=== PATIENT | female | born 1965 | race African-American/Black ===

== ENCOUNTER 2018-06-11 21:18 | Inpatient (IN) | payer OTHER ==
[~2018-06-11] VITALS: Ht 170.2 cm; Wt 73.6 kg
[~2018-06-11 21:18] MED LIST: AMIT25TA PO; AMLO10TA4 PO; AMLO5TAB4 PO; ASPI81TA59 PO; Amoxicillin/Potassium Clav PO; Bisacodyl PO; CEPH-264 PO; CITA10TA8 PO; ESTR10TA VG; GABA-586 PO; Hydrocodone/Acetaminophen PO; INSU100C4 SQ; INSU100I13 SQ; INSU100I17 SQ; INSU100V8 SQ; IRON18TA PO; LEVO25TA55 PO; LISI-130 PO; LISI2.5T PO; LISI20TA PO; METF500T PO; MIRT15TA3 PO; Nicotine TD; Polyethylene Glycol 3350 PO; Sennosides/Docusate Sodium PO; VITA150T PO; [UNRECOGNIZED DRUG - OTHER]
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
[2018-06-11] MEDS ORDERED: ASPIRIN 325 MG TABLET PO ONE (21:45)
[2018-06-11] MEDS: NITROGLYCERIN SUBLINGUAL 0.4 MG BOTTLE OF 25. SL PRN ×2 (21:57→22:34)
[2018-06-11 22:05] LABS: BASO # 0.1 x10^3/uL (0.0-0.2); BASO % 1 % (0-3); EOS # 0.2 x10^3/uL (0.0-0.7); EOS % 1 % (0-3); HEMATOCRIT 48.6 % (36.0-47.0); HEMOGLOBIN 16.7 g/dL (12.0-15.5); LYMPH # 4.7 x10^3/uL (1.0-4.8); LYMPH % 27 % (24-48); MEAN CORPUSCULAR HEMOGLOBIN 31 pg (25-35); MEAN CORPUSCULAR HGB CONC 34 g/dL (31-37); MEAN CORPUSCULAR VOLUME 90 fL (79-100); MONO # 1.1 x10^3/uL (0.0-1.1); MONO % 6 % (0-9); NEUT # 11.2 x10^3uL (1.8-7.7); NEUT % 65 % (31-73); PLATELET COUNT 256 x10^3/uL (140-400); RED BLOOD COUNT 5.42 x10^6/uL (3.50-5.40); RED CELL DISTRIBUTION WIDTH 12.6 % (11.5-14.5); WHITE BLOOD COUNT 17.3 x10^3/uL (4.0-11.0)
[2018-06-11 22:15] LABS: PROTHROMBIN TIME PATIENT 11.6 SEC (11.7-14.0)
--- NOTE | 2018-06-11 22:22 | RAD ---
CHEST PA LATERAL Clinical indications: CHEST PAIN, HX OF HYPERTENSION AND CHF COMPARISON: July 14, 2017. Findings: No acute lung infiltrate or pleural effusion or pulmonary edema or lung mass or pneumothorax is seen. The heart size, pulmonary vasculature, mediastinum and both semaj are unremarkable. The osseous structures appear intact. Impression: No acute radiographic abnormality is seen. Electronically signed by: Alfredo Zhang MD (06/11/2018 10:19 PM) [id number]
[2018-06-11 22:27] LABS: CALCIUM 9.9 mg/dL (8.5-10.1); CREATININE 0.7 mg/dL (0.6-1.0); GFR 105.5; POTASSIUM 3.9 mmol/L (3.5-5.1)
[2018-06-11 22:31] LABS: ALBUMIN 3.9 g/dL (3.4-5.0); ALBUMIN/GLOBULIN RATIO 1.1 (1.0-1.7); TOTAL BILIRUBIN 0.3 mg/dL (0.2-1.0); TOTAL PROTEIN 7.5 g/dL (6.4-8.2)
[2018-06-11] MEDS ORDERED: MORPHINE SULFATE 4 MG/ML VIAL. ONE (22:39)
[2018-06-11] MEDS ORDERED: MORPHINE SULFATE 4 MG/ML VIAL. IV ONE (22:45)
[2018-06-11 22:51] LABS: BILIRUBIN,URINE NEGATIVE (NEG); CLARITY,URINE CLEAR; COLOR,URINE YELLOW; NITRITE,URINE NEGATIVE (NEG); PROTEIN,URINE NEGATIVE (NEG-TRACE); UROBILINOGEN,URINE 0.2 mg/dL (0.2 mg/dL)
[2018-06-11 22:55] LABS: BACTERIA,URINE 0 /HPF (0-FEW); RBC,URINE OCC /HPF (0-2)
[2018-06-11 22:56] LABS: AMORPHOUS SEDIMENT,UR PRESENT /HPF; SQUAMOUS EPITHELIAL CELL,UR FEW /LPF
[2018-06-11 22:58] LABS: AMPHETAMINE/METHAMPHETAMINE NEG (NEG); BARBITURATES NEG (NEG); BENZODIAZEPINES NEG (NEG); CANNABINOIDS POS (NEG); COCAINE POS (NEG); METHADONE NEG (NEG); OPIATES NEG (NEG); PHENCYCLIDINE NEG (NEG)
[2018-06-11] MEDS ORDERED: IV NORMAL SALINE 500ML BAG 500 ML IV ONE (23:15)
--- NOTE | 2018-06-11 23:15 | EKG ---
[address] [place] [address] Test Date: 2018-06-11 Test Time: 21:27:55 Pat Name: BERTA MCGREGOR Department: Room: 538 1 Gender: F Hand Clerical Verifier: : [id number] Requested By: LUISA VILLATORO Order Number: [id number] Reading MD: Justin Kaplan MD Measurements Intervals [place] Rate: 108 P: 23 IL: 148 QRS: -24 QRSD: 80 T: 98 QT: 340 QTc: 459 Interpretive Statements SINUS TACHYCARDIA LEFT ATRIAL ABNORMALITY LEFTWARD AXIS LVH WITH REPOLARIZATION ABNORMALITY ABNORMAL ECG Electronically Signed On 06-12-2018 15:32:49 HOSPITAL NURSE LIAISON by Justin Kaplan MD
[2018-06-11] MEDS ORDERED: IV NORMAL SALINE 1000ML BAG 1,000 ML IV ONE (23:30)
[2018-06-11 23:35] VITALS: BP 112/73
[2018-06-12] MEDS ORDERED: OXYB5TAB7 PO (00:12)
[2018-06-12] MEDS ORDERED: ASPI81TA50 PO (00:12)
[2018-06-12 03:00] VITALS: BP 141/76
[2018-06-12] MEDS ORDERED: MORPHINE SULFATE 4 MG/ML VIAL. IV PRN (04:00)
[2018-06-12 07:00] VITALS: BP 107/67
[2018-06-12] MEDS ORDERED: ONDANSETRON PF 4 MG/2 ML VIAL. IV PRN (09:15)
[2018-06-12] MEDS ORDERED: ONDANSETRON ODT 4 MG TAB.RAPDIS. PO PRN (09:15)
[2018-06-12] MEDS ORDERED: DEXTROSE 50% 25 GM / 50ML DISP.SYRIN. IV PRN (09:15)
[2018-06-12] MEDS ORDERED: SENNOSIDES/DOCUSATE 8.6/50MG TABLET. PO PRN (09:45)
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
[2018-06-12] MEDS ORDERED: IV NORMAL SALINE 1000ML BAG 1,000 ML IV ONE (11:15)
--- NOTE | 2018-06-12 11:42 | PDOC2 ---
RAUL STEVEN CAREER SERVICES ASSISTANT 06/12/18 1142: CARDIAC CONSULT DATE OF CONSULT Date of Consult DATE: 06/12/18 TIME: 11:12 REASON FOR CONSULT Reason for Consult: Chest pain REFERRING PHYSICIAN Referring Physician: Chente SOURCE Source: Chart review, Patient HISTORY OF PRESENT ILLNESS HISTORY OF PRESENT ILLNESS This is a 53 yo female admitted for complains of chest pain. Her pain is reported to left lower ribcage region which is reproducible with plapation and reports at times difficult to take a deep breath but no significant SOA. Denies any nausea or vomiting. She actually had a stress test 2 weeks in and was told that it was ok. Reports no falls or any injury or MVA. She takes her meds regularly but she does not want to quit cocaine and marijuana which she said she likes and continues to smoke tobacco. She said that she sees a metal hanging helper in . Denies any dizziness or passing out. PAST MEDICAL HISTORY Past Medical History Cardiovascular: HTN, possible HOCM Pulmonary: COPD GI: Constipation, gastroparesis Psych: Anxiety, Bipolar, Depression Musculoskeletal: low back pain Endocrine: Diabetes, Hypothyroidism PAST SURGICAL HISTORY Past Surgical History , Hysterectomy FAMILY HISTORY Family History: Coronary Artery Disease (mother) SOCIAL HISTORY Drugs: Cocaine, Marijuana CURRENT MEDICATIONS CURRENT MEDICATIONS Current Medications Medications (Trade) Dose Ordered Sig/Maricarmen Route PRN Reason Start Time Stop Time Status Last Admin Dose Admin Aspirin (Caridad Aspirin) 325 mg 1X ONCE PO 06/11/18 21:45 06/11/18 21:49 DC 06/11/18 21:56 Nitroglycerin (Nitrostat) 0.4 mg PRN Q5MIN PRN SL CHEST PAIN 06/11/18 21:45 06/11/18 22:34 Morphine Sulfate (Morphine Sulfate) 4 mg 1X ONCE IV 06/11/18 22:45 06/11/18 22:46 DC 06/11/18 22:54 Sodium Chloride 500 ml @ 500 mls/hr 1X ONCE IV 06/11/18 23:15 06/12/18 00:14 DC 06/11/18 23:16 Sodium Chloride 1,000 ml @ 125 mls/hr 1X ONCE IV 06/11/18 23:30 06/12/18 07:29 DC 06/11/18 23:59 Morphine Sulfate (Morphine Sulfate) 4 mg PRN Q4HRS PRN IV PAIN 06/12/18 04:00 06/12/18 04:34 ALLERGIES ALLERGIES: Coded Allergies: Sulfa (Sulfonamide Antibiotics) (Verified Allergy, Intermediate, N/V, ) amoxicillin (Verified Allergy, Intermediate, 04/17/16) Tolerates rocephin ROS Review of System 14 point ROS evaluated with pertinent positives noted per HPI PHYSICAL EXAM General: Alert, Oriented X3, Cooperative, No acute distress HEENT: Atraumatic, Mucous membr. moist/pink Lungs: Clear to auscultation, Normal air movement Heart: Regular rate (SR), Normal S1, Normal S2, Other (S4; 4-5/6 systolic murmur diffuse) Abdomen: Soft, No tenderness Extremities: No cyanosis, No edema Skin: No breakdown, No significant lesion Neuro: Normal speech, Sensation intact Psych/Mental Status: Mental status NL, Mood NL MUSCULOSKELETAL: Osteoarthritic changes both hands VITALS VITALS Vital Signs Date Time Temp Pulse Resp B/P (MAP) Pulse Ox O2 Delivery O2 Flow Rate FiO2 06/12/18 07:00 97.9 87 18 107/67 (80) 98 Room Air 97.9 LABS Lab: Laboratory Tests Test 06/11/18 21:45 06/11/18 22:45 06/12/18 01:45 06/12/18 04:45 White Blood Count 17.3 x10^3/uL (4.0-11.0) Red Blood Count 5.42 x10^6/uL (3.50-5.40) Hemoglobin 16.7 g/dL (12.0-15.5) Hematocrit 48.6 % (36.0-47.0) Mean Corpuscular Volume 90 fL (79-100) Mean Corpuscular Hemoglobin 31 pg (25-35) Mean Corpuscular Hemoglobin Concent 34 g/dL (31-37) Red Cell Distribution Width 12.6 % (11.5-14.5) Platelet Count 256 x10^3/uL (140-400) Neutrophils (%) (Auto) 65 % (31-73) Lymphocytes (%) (Auto) 27 % (24-48) Monocytes (%) (Auto) 6 % (0-9) Eosinophils (%) (Auto) 1 % (0-3) Basophils (%) (Auto) 1 % (0-3) Neutrophils # (Auto) 11.2 x10^3uL (1.8-7.7) Lymphocytes # (Auto) 4.7 x10^3/uL (1.0-4.8) Monocytes # (Auto) 1.1 x10^3/uL (0.0-1.1) Eosinophils # (Auto) 0.2 x10^3/uL (0.0-0.7) Basophils # (Auto) 0.1 x10^3/uL (0.0-0.2) Prothrombin Time 11.6 SEC (11.7-14.0) Prothromb Time International Ratio 0.9 (0.8-1.1) Sodium Level 140 mmol/L (136-145) Potassium Level 3.9 mmol/L (3.5-5.1) Chloride Level 101 mmol/L (98-107) Carbon Dioxide Level 26 mmol/L (21-32) Anion Gap 13 (6-14) Blood Urea Nitrogen 11 mg/dL (7-20) Creatinine 0.7 mg/dL (0.6-1.0) Estimated GFR (Cockcroft-Gault) 105.5 BUN/Creatinine Ratio 16 (6-20) Glucose Level 249 mg/dL (70-99) Calcium Level 9.9 mg/dL (8.5-10.1) Total Bilirubin 0.3 mg/dL (0.2-1.0) Aspartate Amino Transf (AST/SGOT) 9 U/L (15-37) Alanine Aminotransferase (ALT/SGPT) 27 U/L (14-59) Alkaline Phosphatase 91 U/L (46-116) Troponin I Quantitative 0.060 ng/mL (0.000-0.055) 0.063 ng/mL (0.000-0.055) 0.062 ng/mL (0.000-0.055) Total Protein 7.5 g/dL (6.4-8.2) Albumin 3.9 g/dL (3.4-5.0) Albumin/Globulin Ratio 1.1 (1.0-1.7) Amylase Level 24 U/L (25-115) Lipase 168 U/L (73-393) Urine Collection Type U cath Urine Color Yellow Urine Clarity Clear Urine pH 6.0 Urine Specific [place] 1.025 Urine Protein Negative mg/dL (NEG-TRACE) Urine Glucose (UA) >=1000 mg/dL (NEG) Urine Ketones (Stick) Trace mg/dL (NEG) Urine Blood Negative (NEG) Urine Nitrite Negative (NEG) Urine Bilirubin Negative (NEG) Urine Urobilinogen Dipstick 0.2 mg/dL (0.2 mg/dL) Urine Leukocyte Esterase Negative (NEG) Urine RBC Occ /HPF (0-2) Urine WBC 1-4 /HPF (0-4) Urine Squamous Epithelial Cells Few /LPF Urine Amorphous Sediment Present /HPF Urine Bacteria 0 /HPF (0-FEW) Urine Mucus Slight /LPF Urine Opiates Screen Neg (NEG) Urine Methadone Screen Neg (NEG) Urine Barbiturates Neg (NEG) Urine Phencyclidine Screen Neg (NEG) Urine Amphetamine/Methamphetamine Neg (NEG) Urine Benzodiazepines Screen Neg (NEG) Urine Cocaine Screen Pos (NEG) Urine Cannabinoids Screen Pos (NEG) Urine Ethyl Alcohol Neg (NEG) Test 06/12/18 07:36 Glucose (Fingerstick) 123 mg/dL (70-99) ECHOCARDIOGRAM ECHOCARDIOGRAM <Conclusion> The left ventricular systolic function is normal. The Ejection Fraction is 70-75%. There is normal LV segmental wall motion. There is moderate concentric left ventricular hypertrophy. Transmitral Doppler flow pattern is Grade I-abnormal relaxation pattern. Probable hypertrophic obstructive cardiomyopathy based on baseline LVOT pressure gradient 98 mmHg that increases to 163 mmHg with Valsalva manuever. Trace mitral regurgitation. There is no evidence of significant pericardial effusion. DATE: 11/14/168 ASSESSMENT/PLAN ASSESSMENT/PLAN 1. Atypical Chest pain: possible MSK, easily reproducible with palpation 2. Mild troponin elevation: suspect due to continued use of cocaine with underlying possible HOCM peaked at 0.06, EKG SR with LVH/LAFB no acute changes. 3. Possible HOCM 4. Polysubstance abuse with tobaccoism: UDS+ THC and cocaine(last use Tuesday) 5. HTN: controlled 6. DM2 7. COPD with continued Tobaccoism Recommendations 1. TTE to reeval HOCM. Will obtain record recent stress test in [facility] from 2 weeks ago 2. No BB with continued use of cocaine. Discussed significantly in regards to in relation to HOCM and continued substance abuse but she does not have plans on quitting. 3. Smoking cessation, continue secondary prevention JAILENE BRISENO MD 06/12/18 2509: CARDIAC CONSULT ASSESSMENT/PLAN ASSESSMENT/PLAN Pt. seen and examined. Agree with above COMPUTER METEOROLOGIST note. 53 y.o woman with atypical chest pain LVH by ekg and mild trop elevation Stress test at a few weeks ago was [id number]. No HOCM by echo Supportive care. Discussed need for cessation of drugs. RAUL STEVEN APRN Jun 12, 2018 11:42 JAILENE BRISENO MD Jun 12, 2018 21:59
--- NOTE | 2018-06-12 12:46 | RAD ---
CT HEAD WO CONTRAST dated 06/12/2018 12:13 PM Indication: Headache.left side pain, no priors. Comparison: No comparison is available. Technique: Contiguous axial imaging the head was performed from skull base to vertex. One or more of the following individualized dose reduction techniques were utilized for this examination: 1. Automated exposure control 2. Adjustment of the mA and/or kV according to patient size 3. Use of iterative reconstruction technique Findings: Ventricles and sulci are within normal limits for age. No midline shift or mass effect. Mild patchy low density in the deep/subcortical periventricular white matter. No hemorrhage or extra axial collection. Posterior fossa and brainstem unremarkable. Visualized paranasal sinuses mastoid air cells are clear. No apparent calvarial abnormality. IMPRESSION: 1. No evidence of acute intracranial abnormality 2. Mild patchy low density in the deep/subcortical periventricular white matter, nonspecific but likely related to chronic small vessel ischemic disease. Electronically signed by: Urbano Sanchez MD (06/12/2018 12:42 PM) [facility]
--- NOTE | 2018-06-12 12:52 | CARD ---
MR#: [id number] Date of Study: 06/12/2018 Ordering Physician: RAUL STEVEN, Referring Physician: ILANA BARFIELD Tech: Vesta Tobin MONSE APPROVED REPORT EXAM: Two-dimensional and M-mode echocardiogram with Doppler and color Doppler. Other Information Quality : GoodHR: 87bpm Rhythm : NSRTechnically limited study due to body habitus. INDICATION HOCM 2D DIMENSIONS RVDd2.7 (2.9-3.5cm)Left Atrium(2D)3.0 (1.6-4.0cm) IVSd1.3 (0.7-1.1cm)Aortic Root(2D)2.8 (2.0-3.7cm) LVDd3.2 (3.9-5.9cm)LVOT Diameter2.1 (1.8-2.4cm) PWd1.3 (0.7-1.1cm)LVDs1.8 (2.5-4.0cm) FS (%) 37.0 %LVEF(%)75.0 (>50%) M-Mode DIMENSIONS Left Atrium(MM)2.99 (2.5-4.0cm)Aortic Root2.71 (2.2-3.7cm) Aortic Valve AoV Peak Ganesh.211.9cm/sAoV VTI32.1cm AO Peak GR.18.0mmHgLVOT Peak Ganesh.191.5cm/s LVOT VTI 32.37cmAO Mean GR.10mmHg NARGIS (VMAX)2.37cb9OVC (VTI)3.60cm2 Mitral Valve MV E Qvwjzddw28.0cm/sMV DECEL FWYJ781sq MV A Hfiwevwr928.7cm/sMV LEC189jn E/A Ratio0.6MVA (PHT)2.21cm2 TDI E/Lateral E'7.1E/Medial E'9.6 Pulmonary Valve PV Peak Vlqrdysa908.6cm/sPV Peak Grad.4mmHg LEFT VENTRICLE The left ventricle cavity is small. There is mild concentric left ventricular hypertrophy. The left v entricle is hyperdynamic. The Ejection Fraction is >70%. There is normal LV segmental wall motion. Tr ansmitral Doppler flow pattern is Grade I-abnormal relaxation pattern. RIGHT VENTRICLE The right ventricle is normal size. There is normal right ventricular wall thickness. The right ventr icular systolic function is normal. ATRIA The left atrium size is normal. The right atrium size is normal. Atrial septum not well visualized. AORTIC VALVE The aortic valve is trileaflet. The aortic valve is normal in structure and function. Doppler and Col or Flow revealed no significant aortic regurgitation. There is no significant aortic valvular stenosi s. No significant velocity increase with valsava. MITRAL VALVE The mitral valve is normal in structure and function. There is no evidence of mitral valve prolapse. There is no mitral valve stenosis. Doppler and Color-flow revealed trace mitral regurgitation. TRICUSPID VALVE The tricuspid valve is normal in structure and function. Doppler and Color Flow revealed no tricuspid valve regurgitation noted. There is no tricuspid valve prolapse or vegetation. There is no tricuspid valve stenosis. PULMONIC VALVE Doppler and Color Flow revealed no pulmonic valvular regurgitation. There is no pulmonic valvular david nosis. GREAT VESSELS The aortic root is normal in size. The ascending aorta is normal in size. IVC not well visualized. PERICARDIAL EFFUSION There is no evidence of significant pericardial effusion. Critical Notification Critical Value: No <Conclusion> The left ventricle is hyperdynamic. The Ejection Fraction is >70%. There is normal LV segmental wall motion. Signed by : Justin Kaplan, Electronically Approved : 06/12/2018 12:52:05
[2018-06-12 15:00] VITALS: BP 131/83
[2018-06-12] MEDS: CITALOPRAM 10 MG TABLET. PO SCH (15:32)
[2018-06-12] MEDS: LISINOPRIL 20 MG TABLET PO SCH (15:33)
[2018-06-12] MEDS: ASPIRIN ENTERIC COATED 81 MG TABLET.DR. PO SCH (15:33)
[2018-06-12] MEDS: AMITRIPTYLINE HCL 25 MG TABLET. PO SCH (15:34)
[2018-06-12] MEDS: amLODIPine BESYLATE 10 MG TABLET PO SCH (15:34)
[2018-06-12] MEDS: LEVOTHYROXINE 25 MCG TABLET. PO SCH (15:34)
[2018-06-12] MEDS: INSULIN LISPRO 300 UNITS/3 ML INSULN.PEN. SQ SCH ×4 (15:40→18:33)
[2018-06-12] MEDS: oxyCODONE/APAP 5/325 1 TAB TABLET PO PRN ×2 (15:43→20:30)
[2018-06-12] MEDS ORDERED: NICOTINE 21MG PATCH. TD PRN (16:45)
[2018-06-12] MEDS ORDERED: NICOTINE POLACRILEX 2MG GUM PACKAGE of 12. BC PRN (16:45)
[2018-06-12 19:00] VITALS: BP 120/88
[2018-06-12] MEDS: OXYBUTYNIN CHLORIDE 5 MG TABLET PO SCH (20:30)
[2018-06-12] MEDS ORDERED: GABAPENTIN 300 MG CAPSULE. PO SCH (21:00)
[2018-06-12] MEDS ORDERED: INSULIN GLARGINE 300 UNITS/3 ML INSULN.PEN. SQ SCH (21:00)
[2018-06-12 23:00] VITALS: BP 87/48
[2018-06-12 23:13] LABS: HEMOGLOBIN A1C 10.7 % (4.8-5.6)
[2018-06-13] MEDS: oxyCODONE/APAP 5/325 1 TAB TABLET PO PRN ×2 (02:30→08:18)
[2018-06-13 03:00] VITALS: BP 96/60
[2018-06-13] MEDS: LEVOTHYROXINE 25 MCG TABLET. PO SCH (06:12)
[2018-06-13 07:00] VITALS: BP 109/72
[2018-06-13] MEDS ORDERED: INSU100I17 SQ (08:05)
[2018-06-13] MEDS ORDERED: LISI-130 PO (08:05)
[2018-06-13] MEDS ORDERED: OXYC1TAB7 PO (08:05)
[2018-06-13] MEDS ORDERED: AMLO10TA4 PO (08:05)
[2018-06-13] MEDS ORDERED: INSU100I13 SQ (08:05)
[2018-06-13] MEDS: CITALOPRAM 10 MG TABLET. PO SCH (08:17)
[2018-06-13] MEDS: ASPIRIN ENTERIC COATED 81 MG TABLET.DR. PO SCH (08:17)
[2018-06-13] MEDS: AMITRIPTYLINE HCL 25 MG TABLET. PO SCH (08:18)
[2018-06-13] MEDS: amLODIPine BESYLATE 10 MG TABLET PO SCH (08:18)
[2018-06-13] MEDS: OXYBUTYNIN CHLORIDE 5 MG TABLET PO SCH (08:18)
[2018-06-13 08:19] VITALS: BP 109/72
[2018-06-13] MEDS: LISINOPRIL 20 MG TABLET PO SCH (08:19)
[2018-06-13] MEDS: INSULIN LISPRO 300 UNITS/3 ML INSULN.PEN. SQ SCH ×2 (08:24→08:25)
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
== END 2018-06-13 09:15 | disposition home or self-care (01) | DRG 206 ==
LOC: ER 21:18 → 5 NORTH 22:59
PROVIDERS: ADMIT Family Medicine; ATTEND Family Medicine
DX: M94.0 Chondrocostal junction syndrome [Tietze] (principal); J44.9 Chronic obstructive pulmonary disease, unspecified; E03.9 Hypothyroidism, unspecified; F12.10 Cannabis abuse, uncomplicated; E78.5 Hyperlipidemia, unspecified; F14.10 Cocaine abuse, uncomplicated; F17.200 Nicotine dependence, unspecified, uncomplicated; I11.9 Hypertensive heart disease without heart failure; M54.5 Low back pain; E11.9 Type 2 diabetes mellitus without complications; Z79.4 Long term (current) use of insulin; Z79.82 Long term (current) use of aspirin; Z82.49 Family history of ischemic heart disease and other diseases of the circulatory system; Z90.710 Acquired absence of both cervix and uterus; Z98.891 History of uterine scar from previous surgery; Z83.3 Family history of diabetes mellitus; F32.9 Major depressive disorder, single episode, unspecified; F41.9 Anxiety disorder, unspecified; K59.00 Constipation, unspecified; Z88.2 Allergy status to sulfonamides; Z88.8 Allergy status to other drugs, medicaments and biological substances; Z79.899 Other long term (current) drug therapy; Z59.0 Homelessness; Z71.6 Tobacco abuse counseling
CPT/HCPCS: 36415; 70450; 71046; 80053; 80307; 81001; 82150; 82962; 83036; 83690; 84484; 85025; 85610; 93005; 93306; 96374; J1815; J2270; J7030; J7040; 99285-25

== ENCOUNTER 2018-08-23 08:14 | Emergency (ER) | payer OTHER ==
[~2018-08-23] VITALS: Ht 170.2 cm; Wt 72.6 kg
[~2018-08-23 08:14] MED LIST changes: +ASPI81TA50 PO; +DOCU-109 PO; +DOXY100T PO; -GABA-586 PO; +GABA300C18 PO; +LINZESS145 MCG PO; +NICO1PAT21 TP; +OXYB5TAB7 PO; +OXYC1TAB7 PO; +Pantoprazole PO; +TAMS0.4C97 PO
[2018-08-23 09:30] VITALS: BP 135/87
--- NOTE | 2018-08-23 10:05 | PHYS DOC ---
Past Medical History Past Medical History: Bipolar, Depression, Diabetes-Type II, High Cholesterol, Hypertension, Hypothyroid, Other Additional Past Medical Histor: bladder prolapsed, substance use Past Surgical History: , Hysterectomy, Other Additional Past Surgical Histo: Bladder mesh and removal Alcohol Use: None Drug Use: Cocaine, Marijuana, Other Adult General Chief Complaint Chief Complaint: ABDOMINAL PAIN HPI HPI Patient is a 53 year old female who presents to the emergency room with a chief complaint of abdominal pain, left upper quadrant she says she's had it since she said something feels swollen. radiates to back and posterior rib area She is working with [facility] on getting a bladder mesh repair done she is taking ciprofloxacin for a UTI as well as a fungal medicine but she is frustrated because she wants him to help her faster than they are doing. She said she has occasional shortness of breath but that is actually okay in addition she has an abnormal lump seen on a mammogram and she is getting that worked up as well she does not get carry a diagnosis of cancer she gets some more pain when she is eating and also when she is moving around she feels pain in her left back as well sharp in that area no other exacerbating factors Review of Systems Review of Systems Constitutional: Denies fever or chills [] Eyes: Denies change in visual acuity, redness, or eye pain [] HENT: Denies nasal congestion or sore throat [] Respiratory: Cardiovascular: No additional information not addressed in HPI [] GI : Musculoskeletal: Denies back pain or joint pain [] Integument: Denies rash or skin lesions [] Neurologic: Denies headache, focal weakness. numbess both legs] Endocrine All other systems were reviewed and found to be within normal limits, except as documented in this note. Current Medications Current Medications Current Medications Medications (Trade) Dose Ordered Sig/Maricarmen Start Time Stop Time Status Last Admin Dose Admin Fentanyl Citrate (Fentanyl 2ml Vial) 50 mcg 1X ONCE 08/23/18 10:30 08/23/18 10:31 DC 08/23/18 10:13 50 MCG Info (CONTRAST GIVEN -- Rx MONITORING) 1 each PRN DAILY PRN 08/23/18 11:00 08/25/18 10:59 Insulin Human Regular (HumuLIN R VIAL) 10 unit 1X ONCE 08/23/18 11:30 08/23/18 11:31 DC 08/23/18 11:43 10 UNIT Iohexol (Omnipaque 300 Mg/ml) 75 ml 1X ONCE 08/23/18 10:45 08/23/18 10:46 DC 08/23/18 10:58 75 ML Ondansetron HCl (Zofran) 4 mg 1X ONCE 08/23/18 10:30 08/23/18 10:31 DC 08/23/18 10:13 4 MG Sodium Chloride 1,000 ml @ 1,000 mls/hr 1X ONCE 08/23/18 10:15 08/23/18 11:14 DC 08/23/18 10:12 1,000 MLS/HR Allergies Allergies Allergies Coded Allergies Type Severity Reaction Last Updated Verified Sulfa (Sulfonamide Antibiotics) Allergy Intermediate N/V 04/16/16 Yes amoxicillin Allergy Intermediate 04/17/16 Yes Physical Exam Physical Exam Constitutional: Well developed, well nourished, no acute distress, non-toxic appearance. [] HENT: Normocephalic, atraumatic, bilateral external ears normal, oropharynx moist, no oral exudates, nose normal. [] Eyes: PERRLA, EOMI, conjunctiva normal, no discharge. [] Neck: Normal range of motion, no tenderness, supple, no stridor. [] Cardiovascular:Heart rate regular rhythm, no murmur [] Lungs & Thorax: Bilateral breath sounds clear to auscultation [] Abdomen: Bowel sounds normal, soft, luq tenderness, no masses, no pulsatile masses. Skin: Warm, dry, no erythema, no rash. [] Back:, cva ttp on the left Extremities: No tenderness, no cyanosis, no clubbing, ROM intact, no edema. [] Neurologic: Alert and oriented X 3, normal motor function, normal sensory function, no focal deficits noted. [] Current Patient Data Vital Signs Vital Signs Date Time Temp Pulse Resp B/P (MAP) Pulse Ox O2 Delivery O2 Flow Rate FiO2 08/23/18 10:13 20 98 Room Air 08/23/18 09:30 98.7 113 135/87 (103) 98.7 Lab Values Laboratory Tests Test 08/23/18 09:03 08/23/18 09:55 Urine Collection Type Unknown Urine Color Yellow Urine Clarity Clear Urine pH 6.0 Urine Specific [place] 1.025 Urine Protein Negative mg/dL (NEG-TRACE) Urine Glucose (UA) >=1000 mg/dL (NEG) Urine Ketones (Stick) Trace mg/dL (NEG) Urine Blood Negative (NEG) Urine Nitrite Negative (NEG) Urine Bilirubin Negative (NEG) Urine Urobilinogen Dipstick 0.2 mg/dL (0.2 mg/dL) Urine Leukocyte Esterase Negative (NEG) Urine RBC Occ /HPF (0-2) Urine WBC 1-4 /HPF (0-4) Urine Squamous Epithelial Cells Few /LPF Urine Bacteria Few /HPF (0-FEW) White Blood Count 12.2 x10^3/uL (4.0-11.0) H Red Blood Count 5.33 x10^6/uL (3.50-5.40) Hemoglobin 16.0 g/dL (12.0-15.5) H Hematocrit 48.1 % (36.0-47.0) H Mean Corpuscular Volume 90 fL (79-100) Mean Corpuscular Hemoglobin 30 pg (25-35) Mean Corpuscular Hemoglobin Concent 33 g/dL (31-37) Red Cell Distribution Width 13.1 % (11.5-14.5) Platelet Count 206 x10^3/uL (140-400) Neutrophils (%) (Auto) 75 % (31-73) H Lymphocytes (%) (Auto) 20 % (24-48) L Monocytes (%) (Auto) 4 % (0-9) Eosinophils (%) (Auto) 1 % (0-3) Basophils (%) (Auto) 1 % (0-3) Neutrophils # (Auto) 9.1 x10^3uL (1.8-7.7) H Lymphocytes # (Auto) 2.4 x10^3/uL (1.0-4.8) Monocytes # (Auto) 0.5 x10^3/uL (0.0-1.1) Eosinophils # (Auto) 0.1 x10^3/uL (0.0-0.7) Basophils # (Auto) 0.1 x10^3/uL (0.0-0.2) D-Dimer (Shelley) 0.41 ug/mlFEU (0.00-0.50) Sodium Level 137 mmol/L (136-145) Potassium Level 4.2 mmol/L (3.5-5.1) Chloride Level 102 mmol/L (98-107) Carbon Dioxide Level 28 mmol/L (21-32) Anion Gap 7 (6-14) Blood Urea Nitrogen 10 mg/dL (7-20) Creatinine 0.9 mg/dL (0.6-1.0) Estimated GFR (Cockcroft-Gault) 79.0 BUN/Creatinine Ratio 11 (6-20) Glucose Level 475 mg/dL (70-99) H Calcium Level 9.2 mg/dL (8.5-10.1) Total Bilirubin 0.4 mg/dL (0.2-1.0) Aspartate Amino Transferase (AST) 11 U/L (15-37) L Alanine Aminotransferase (ALT) 25 U/L (14-59) Alkaline Phosphatase 93 U/L (46-116) Troponin I Quantitative < 0.017 ng/mL (0.000-0.055) Total Protein 7.2 g/dL (6.4-8.2) Albumin 3.4 g/dL (3.4-5.0) Albumin/Globulin Ratio 0.9 (1.0-1.7) L Lipase 140 U/L (73-393) Laboratory Tests 08/23/18 09:55 Laboratory Tests 08/23/18 09:55 EKG EKG [] Radiology/Procedures Radiology/Procedures [] Impressions: Mild decreased attenuation noted in the liver likely hepatic steatosis. The visualized spleen, adrenals grossly appears unremarkable. The gallbladder is mildly distended. The stomach is mildly distended. The visualized pancreas grossly appears unremarkable. The small bowel is nondilated. The appendix is normal. Feces and gas noted in the colon. The urinary bladder is mildly distended. The bilateral kidneys enhance symmetrically. Moderate aortic atherosclerosis Lipoma identified in the left tensor fascia ned similar to prior exam. Mild superior endplate compression change of L1 vertebral body with associated Schmorl's node similar to prior exam. IMPRESSION: 1. No acute intra-abdominal findings. 2. Hepatic steatosis. 3. Patchy bibasilar lung groundglass airspace opacities likely atelectasis or infiltrates similar to prior exam. Electronically signed by: Aguilar Mcfarlane MD (08/23/2018 11:23 AM) [id number] DICTATED and SIGNED BY: AGUILAR MCFARLANE MD DATE: 08/23/18 1111 Course & Med Decision Making Course & Med Decision Making Pertinent Labs and Imaging studies reviewed. (See chart for details) History of hypertension hyperlipidemia reported documented history of substance use Presenting to the emergency room with some left upper quadrant and left posterior CVA area pain for the last 4-5 days it is reproducible on examination she is frustrated about several issues including her blood sugar as well as issues with a delayed bladder mesh surgery due to hyperglycemia ER workup is negative patient is resting comfortably. pt reassured, given insulin for her nongap hyperglycemia and was better at the time of discharge.[] Dragon Disclaimer Dragon Disclaimer This electronic medical record was generated, in whole or in part, using a voice recognition dictation system. Departure Departure Impression: Primary Impression: Abdominal pain Disposition: HOME, SELF-CARE Condition: STABLE Referrals: NO PCP (PCP) SILVANO GAMBINO MD Aug 23, 2018 10:05
[2018-08-23 10:09] LABS: BASO # 0.1 x10^3/uL (0.0-0.2); BASO % 1 % (0-3); EOS # 0.1 x10^3/uL (0.0-0.7); EOS % 1 % (0-3); HEMATOCRIT 48.1 % (36.0-47.0); LYMPH # 2.4 x10^3/uL (1.0-4.8); LYMPH % 20 % (24-48); MEAN CORPUSCULAR HEMOGLOBIN 30 pg (25-35); MEAN CORPUSCULAR HGB CONC 33 g/dL (31-37); MEAN CORPUSCULAR VOLUME 90 fL (79-100); MONO # 0.5 x10^3/uL (0.0-1.1); MONO % 4 % (0-9); NEUT # 9.1 x10^3uL (1.8-7.7); NEUT % 75 % (31-73); PLATELET COUNT 206 x10^3/uL (140-400); RED BLOOD COUNT 5.33 x10^6/uL (3.50-5.40); RED CELL DISTRIBUTION WIDTH 13.1 % (11.5-14.5); WHITE BLOOD COUNT 12.2 x10^3/uL (4.0-11.0)
[2018-08-23 10:10] LABS: BILIRUBIN,URINE NEGATIVE (NEG); CLARITY,URINE CLEAR; COLOR,URINE YELLOW; NITRITE,URINE NEGATIVE (NEG); PROTEIN,URINE NEGATIVE (NEG-TRACE); UROBILINOGEN,URINE 0.2 mg/dL (0.2 mg/dL)
[2018-08-23] MEDS ORDERED: IV NORMAL SALINE 1000ML BAG 1,000 ML IV ONE (10:15)
[2018-08-23 10:18] LABS: BACTERIA,URINE FEW /HPF (0-FEW); RBC,URINE OCC /HPF (0-2); SQUAMOUS EPITHELIAL CELL,UR FEW /LPF
[2018-08-23 10:22] LABS: CALCIUM 9.2 mg/dL (8.5-10.1); CREATININE 0.9 mg/dL (0.6-1.0); POTASSIUM 4.2 mmol/L (3.5-5.1)
[2018-08-23 10:27] LABS: ALBUMIN 3.4 g/dL (3.4-5.0); ALBUMIN/GLOBULIN RATIO 0.9 (1.0-1.7); TOTAL BILIRUBIN 0.4 mg/dL (0.2-1.0); TOTAL PROTEIN 7.2 g/dL (6.4-8.2)
[2018-08-23] MEDS ORDERED: fentaNYL PF VIAL 100 MCG/2 ML VIAL IV ONE (10:30)
[2018-08-23] MEDS ORDERED: ONDANSETRON PF 4 MG/2 ML VIAL. IV ONE (10:30)
[2018-08-23] MEDS ORDERED: IOHEXOL 300 MG/ML 100ML VIAL. IV ONE (10:45)
[2018-08-23] MEDS ORDERED: CONTRAST GIVEN. MC PRN (11:00)
--- NOTE | 2018-08-23 11:27 | RAD ---
Examination: CT of the abdomen pelvis with IV contrast HISTORY: History of left lower quadrant abdominal pain COMPARISON: 06/25/2018 TECHNIQUE: Axial CT images of the abdomen pelvis were performed with IV contrast. Coronal and sagittal reformats are performed Exposure: One or more of the following individualized dose reduction techniques were utilized for this examination: 1. Automated exposure control 2. Adjustment of the mA and/or kV according to patient size 3. Use of iterative reconstruction technique FINDINGS: There are patchy bibasilar groundglass airspace opacities identified in the lungs likely atelectasis or infiltrates. No evidence of free air identified in the abdomen. Mild decreased attenuation noted in the liver likely hepatic steatosis. The visualized spleen, adrenals grossly appears unremarkable. The gallbladder is mildly distended. The stomach is mildly distended. The visualized pancreas grossly appears unremarkable. The small bowel is nondilated. The appendix is normal. Feces and gas noted in the colon. The urinary bladder is mildly distended. The bilateral kidneys enhance symmetrically. Moderate aortic atherosclerosis Lipoma identified in the left tensor fascia ned similar to prior exam. Mild superior endplate compression change of L1 vertebral body with associated Schmorl's node similar to prior exam. IMPRESSION: 1. No acute intra-abdominal findings. 2. Hepatic steatosis. 3. Patchy bibasilar lung groundglass airspace opacities likely atelectasis or infiltrates similar to prior exam. Electronically signed by: Aguilar Mcfarlane MD (08/23/2018 11:23 AM) [id number]
[2018-08-23] MEDS ORDERED: INSULIN REGULAR 100 UNIT/ML 3ML VIAL. IV ONE (11:30)
--- NOTE | 2018-08-23 12:15 | EKG ---
[facility] [address] [place] [address] Test Date: 2018-08-23 Test Time: 10:37:30 Pat Name: MADONNA MCGREGOR Department: Room: Gender: F Construction Engineer: : [id number] Requested By: SILVANO GAMBINO Order Number: [id number] Reading MD: Measurements Intervals [place] Rate: 91 P: 47 GA: 134 QRS: -28 QRSD: 78 T: 66 QT: 360 QTc: 444 Interpretive Statements SINUS RHYTHM LEFT ATRIAL ABNORMALITY LEFTWARD AXIS QRS(T) CONTOUR ABNORMALITY CONSIDER ANTEROSEPTAL MYOCARDIAL DAMAGE ST & T ABNORMALITY, CONSIDER HIGH LATERAL ISCHEMIA OR LEFT VENTRICULAR STRAIN ABNORMAL ECG RI6.01 No previous ECG available for comparison
--- NOTE | 2018-08-23 14:31 | NUR ---
SS received referral from ER stating that pt was needing assistance with LTC or Assisted Living pt. SS reviewed pt chart. Pt has Medicaid. Pt reported that her mother had been at [facility] and there and would like to go to [facility]. SS contacted Haylie from [facility] and asked her to come assess pt. SS printed off packet for pt and completed CARE assessment. SS provided packet and copy of CARE Assessment to [facility].
--- NOTE | 2018-08-23 15:02 | NUR ---
SS following up. [facility] offered to accept pt but reported that pt would need to sign liability form for Medicaid purposes in order for pt to admit to facility under Medicaid insurance. Pt refused to sign liability form and sent [facility] away. Pt became upset and demanded that records be sent to [facility], ; fax [phone]. SS faxed records to [facility].
--- NOTE | 2018-08-23 16:09 | NUR ---
SS following up. [facility] contacted SS and stated that they would accept pt for placement. [facility] reported that they would arrange transportation and contact registration in the ER with the transportation time.
== END 2018-08-23 12:50 | disposition home or self-care (01) ==
LOC: ER 08:14
DX: R10.12 Left upper quadrant pain (principal); R06.02 Shortness of breath; E11.65 Type 2 diabetes mellitus with hyperglycemia; E03.9 Hypothyroidism, unspecified; E78.00 Pure hypercholesterolemia, unspecified; I10 Essential (primary) hypertension; F31.9 Bipolar disorder, unspecified; Z90.710 Acquired absence of both cervix and uterus; K76.0 Fatty (change of) liver, not elsewhere classified; Z98.890 Other specified postprocedural states; Z88.1 Allergy status to other antibiotic agents; Z88.2 Allergy status to sulfonamides
CPT/HCPCS: 36415; 74177; 80053; 81001; 82962; 83690; 84484; 85025; 85379; 93005; 96361; 96374; 96375; 99284; J1815; J2405; J3010; J7030; Q9967

== ENCOUNTER 2019-01-26 19:35 | Emergency (ER) | payer OTHER ==
[~2019-01-26] VITALS: Ht 170.2 cm; Wt 68.9 kg
[2019-01-26 19:45] VITALS: BP 109/71
--- NOTE | 2019-01-26 20:33 | PHYS DOC ---
Past Medical History Past Medical History: Bipolar, Depression, Diabetes-Type II, High Cholesterol, Hypertension, Hypothyroid, Other Additional Past Medical Histor: bladder prolapsed, substance use Past Surgical History: , Hysterectomy, Other Additional Past Surgical Histo: Bladder mesh and removal Alcohol Use: None Drug Use: Cocaine, Marijuana Adult General Chief Complaint Chief Complaint: ABDOMINAL PAIN HPI HPI 53-year-old female presents to ER via POV for complaints of ongoing abdominal pain. Patient states she had surgery at [facility] and has been having ongoing abdominal pain since being discharged from that facility last week. Patient states pain is similar to when she was in [facility] denying acute changes. Patient also has complaints of right inner upper thigh wound which she was seen at the wound clinic today for and had dressing changed. Patient denies acute change with the wound. Patient states she came to the ER for pain management for ongoing pain issues. She reports she was provided with prescription from [facility] but hasn't picked up the prescription as of yet stating she didn't have a ride. When asked how she arrived to the hospital tonight she reported her son brought her. Patient denies fever, vomiting, or diarrhea. Patient reports she has been drinking and eating without increased abdominal pain. Patient states she is scheduled on Tuesday at the wound clinic again for reevaluation. She also reports she has appointment scheduled at [facility] on Tuesday for gastrointestinal and liver doctor follow-up. Patient denies chest pain, shortness of air, or urinary symptoms. Review of Systems Review of Systems Constitutional: Denies fever or chills [] Eyes: Denies change in visual acuity, redness, or eye pain [] HENT: Denies nasal congestion or sore throat [] Respiratory: Denies cough or shortness of breath [] Cardiovascular: Denies chest pain or palpitations GI: Denies nausea, vomiting, bloody stools or diarrhea. Reports upper left side abd pain radiating across upper abd. Reports this pain is similar to when she was at [facility] denying acute changes. : Denies dysuria or hematuria [] Musculoskeletal: Denies back pain. Reports pain at rt upper/inner thigh wound- denies acute changes Integument: Denies rash or skin lesions [] Neurologic: Denies headache, focal weakness or sensory changes [] Endocrine: Denies polyuria or polydipsia [] All other systems were reviewed and found to be within normal limits, except as documented in this note. Allergies Allergies Allergies Coded Allergies Type Severity Reaction Last Updated Verified Sulfa (Sulfonamide Antibiotics) Allergy Intermediate N/V 04/16/16 Yes amoxicillin Allergy Intermediate 04/17/16 Yes Physical Exam Physical Exam Constitutional: Well developed, well nourished, no acute distress, non-toxic appearance. [] HENT: Normocephalic, atraumatic, bilateral external ears normal, oropharynx moist, no oral exudates, nose normal. [] Eyes: PERRLA, EOMI, conjunctiva normal, no discharge. [] Neck: Normal range of motion, no tenderness, supple, no stridor. [] Cardiovascular:Heart rate regular rhythm, no murmur [] Lungs & Thorax: Bilateral breath sounds clear to auscultation [] Abdomen: Bowel sounds normal, soft, no tenderness, no masses, no pulsatile masses. [] Skin: Warm, dry, no erythema, no rash. [] Back: No tenderness, no CVA tenderness. [] Extremities: No tenderness, no cyanosis, no clubbing, ROM intact, no edema. [] Neurologic: Alert and oriented X 3, normal motor function, normal sensory function, no focal deficits noted. [] Psychologic: Affect normal, judgement normal, mood normal. [] Current Patient Data Vital Signs Vital Signs Date Time Temp Pulse Resp B/P (MAP) Pulse Ox O2 Delivery O2 Flow Rate FiO2 01/26/19 19:45 98.9 117 22 109/71 (84) 95 Room Air 98.9 EKG EKG [] Radiology/Procedures Radiology/Procedures [] Course & Med Decision Making Course & Med Decision Making [] Dragon Disclaimer Dragon Disclaimer This electronic medical record was generated, in whole or in part, using a voice recognition dictation system. Departure Departure Impression: Primary Impression: Abdominal pain Disposition: HOME, SELF-CARE Condition: STABLE Referrals: NO PCP (PCP) Patient Instructions: Abdominal Pain Additional Instructions: As discussed you need to get your prescriptions you were provided at [facility] filled and take that for your pain. You were offered a dose while you were here but preferred no medications. Drink plenty of fluids. Keep your scheduled appointments on Tuesday at Wound Care and with the Gastrointestinal and Liver specialist doctor appointments on Tuesday. If symptoms worsen follow-up with your primary care physician and/or return to the emergency department for further care and reevaluation. [employer] Jan 26, 2019 20:33
== END 2019-01-26 20:20 | disposition home or self-care (01) ==
LOC: ER 19:35
DX: R10.12 Left upper quadrant pain (principal); F31.9 Bipolar disorder, unspecified; E11.9 Type 2 diabetes mellitus without complications; E78.00 Pure hypercholesterolemia, unspecified; I10 Essential (primary) hypertension; E03.9 Hypothyroidism, unspecified; Z90.710 Acquired absence of both cervix and uterus; Z88.1 Allergy status to other antibiotic agents; Z88.2 Allergy status to sulfonamides
CPT/HCPCS: 99281